=== PATIENT | female | born 1985 | race Caucasian/White ===

== ENCOUNTER 2024-03-15 01:18 | Day surgery (SDC) | payer OTHER, SELFPAY ==
[2024-03-14 18:25] VITALS: BP 113/81
[2024-03-14 18:43] LABS: % Basophils 0.4 % (0-2); % Eosinophils 0.3 % (0-6); % Immature Granulocytes 0.3 % (0-0.5); % Lymphocytes 12.4 % (20.5-51.1); % Monocytes 4.9 % (1.7-9.3); % Neutrophils 81.7 % (42.2-75.2); Absolute Basophils 0.1 10^3/uL (0-0.2); Absolute Eosinophils 0.1 10^3/uL (0-0.7); Absolute Immature Granulocytes 0.1 10^3/uL (0-0.05); Absolute Lymphocytes 2.1 10^3/uL (1.2-3.4); Absolute Monocytes 0.8 10^3/uL (0.1-0.6); Absolute Neutrophils 13.7 10^3/uL (1.4-6.5); Hematocrit 39.8 % (37.0-47.0); Hemoglobin 14.3 g/dL (12.0-16.0); Mean Corp Hgb Conc. 35.9 g/dL (33.0-37.0); Mean Corpuscular Hgb 28.9 pg (27.0-31.0); Mean Corpuscular Volume 80.4 fL (81.0-99.0); Mean Platelet Volume 9.4 fL (7.4-10.4); Nucleated Red Blood Cells % 0 %; Platelet Count 327 10^3/uL (130-400); Red Blood Cell Count 4.95 10^6/uL (4.20-5.40); Red Cell Dist. Width 11.8 % (11.5-14.5); White Blood Cell Count 16.8 10^3/uL (4.8-10.8)
[2024-03-14 18:57] LABS: HCG, Serum Qualitative Screen Negative
[2024-03-14 19:00] LABS: ALT (SGPT) 17 U/L (0-35); AST (SGOT) 25 U/L (14-36); Albumin 4.6 g/dl (3.5-5.0); Alkaline Phosphatase 57 U/L (38-126); Blood Urea Nitrogen 10 mg/dl (7-17); Calcium 9.8 mg/dl (8.4-10.2); Carbon Dioxide 24 mmol/L (22-30); Chloride 105 mmol/L (98-107); Glucose 85 mg/dl (70-99); Lipase 114 U/L (23-300); Sodium 138 mmol/L (135-145); Total Bilirubin 1.1 mg/dl (0.2-1.3); eGFR > 60.00
[2024-03-14] MEDS: TORADOL 15 MG IV (21:40)
[2024-03-14] MEDS: NSS 1000 IV (21:40)
[2024-03-14] MEDS: ZOFRAN 4 MG IV (21:42)
[2024-03-14 21:58] LABS: Urine Albumin Negative (Neg - Trace); Urine Bilirubin Negative (Negative); Urine Character Clear (Clear); Urine Color Yellow; Urine Glucose Negative (Negative); Urine Ketone 3+ (Negative); Urine Leukocyte Negative (Negative); Urine Nitrite Negative (Negative); Urine Occult Blood Negative (Negative); Urine Urobilinogen Negative (Neg - 1+)
--- NOTE | 2024-03-14 22:00 | ED.GENMED ---
History of Present Illness
General
Chief Complaint: Abdominal Pain
Source: patient
Exam Limitations: none
Time Seen by Provider: 03/14/24 20:27
Travel History
Have you had any contact with someone who has COVID-19?: No
Do you have any symptoms of coronavirus? Fever > 100 degrees, chills, cough, shortness of breath, sore throat, loss of taste or smell, muscle aches, or headache?: No
History of Present Illness
History of Present Illness:
39-year-old female presents complaining of significant right-sided abdominal pain that is constant sharp stabbing in nature occasionally radiates to the back. There is associated nausea with vomiting. This started fairly suddenly today. There was
some associated upper abdominal discomfort at the onset of the symptoms. Last menstrual cycle was finished last week. No fevers. She is healthy otherwise. No other complaints at this time
Past History
Past History
ED Past Medical History: None, Other (Recovering alcoholic), Other (Anxiety) and Other (Sleep disturbance)
ED Past Surgical History: None
Social History
Tobacco: Smoker
Alcohol: Other (Recovering alcoholic- clean for 31 days)
Personal: Single
Living: with family
Family History
Family History: Other (Cancer of the colon )
Phy Exam
Physical Exam
Physical Exam:
General: Well-appearing female no acute tomy distress
HEENT: Normocephalic atraumatic
Heart: Regular rate and rhythm no murmurs
Lungs: Clear no wheeze
Abdomen is soft but tender to the right lower quadrant mild guarding no rebound normal bowel sounds nondistended
Extremities: No cyanosis or edema
Course
Orders/Labs/Results
Orders:
Orders
03/14/24 18:30
Test Result ONCE
03/14/24 18:37
Complete Blood Count/With Diff Urgent
Comprehensive Metabolic Panel Urgent
HCG, Serum Qualitative Screen Urgent
Lipase Urgent
03/14/24 20:47
CT Abd/pelvis W Iv Cont Urgent
Comment:
Reason For Exam: rlq pain
0.9% Sodium Chloride 1000 ml [Nss] 1,000 ml IV BOLUS
Ketorolac [Toradol] 15 mg IV NOW STA
Ondansetron HCl [Zofran] 4 mg PO NOW STA
03/14/24 21:27
Ondansetron Injectable [Zofran] 4 mg .ROUTE .STK-MED ONE
03/14/24 21:41
Ondansetron Injectable [Zofran] 4 mg IV NOW STA
03/14/24 21:44
Urinalysis Reflex To Culture Urgent
Date Specimen was Collected: 03/14/24
Time Specimen was Collected: 18:29
03/14/24 23:00
Piperacillin/Tazo 3.375 Gram [Zosyn] 3.375 gram in 50 ml IV NOW
Abnormal Lab Results
03/14/24 03/14/24
18:37 21:44
WBC 16.8 H 10^3/uL
(4.8-10.8)
MCV 80.4 L fL
(81.0-99.0)
Abs Immat Gran (auto) 0.1 H 10^3/uL
(0-0.05)
Absolute Neuts (auto) 13.7 H 10^3/uL
(1.4-6.5)
Absolute Monos (auto) 0.8 H 10^3/uL
(0.1-0.6)
Neutrophils % 81.7 H %
(42.2-75.2)
Lymphocytes % 12.4 L %
(20.5-51.1)
Urine Ketones 3+ A
(Negative)
03/14/24 18:37
03/14/24 18:37
Vital Signs
Initial and Last Documented VS:
Initial Vital Signs
Temp Pulse Resp BP Pulse Ox
98.9 F 83 18 113/81 100
03/14/24 18:25 03/14/24 18:25 03/14/24 18:25 03/14/24 18:25 03/14/24 18:25
Last Documented Vital Signs
Temp Pulse Resp BP Pulse Ox
98.9 F 83 18 113/81 100
03/14/24 18:25 03/14/24 18:25 03/14/24 18:25 03/14/24 18:25 03/14/24 18:25
MDM/Problems Addressed
Differential Diagnosis Includes:
Right lower abdominal pain. Consider appendicitis versus renal colic versus ovarian cyst versus torsion. test is negative. Will check labs otherwise. Given the right lower quadrant pain order CT of the abdomen
*Critical Care Note
Total Time (30-74mins, 75-104mins- exclusive of procedures): Not Applicable
Update Note
Update Note:
I personally reviewed the CAT scan and discussed findings with radiology. There is acute appendicitis without evidence of rupture or free air. Discussed findings with general surgeon on-call who accept the patient under his service. Ortiz
provider made aware
ED Attending Note
-
Portions of this chart may have been created with voice recognition software.� Occasional wrong word or��sound alike� substitutions may have occurred due to the inherent limitations of voice recognition software.
Discharge Plan
Departure
Patient Disposition: Admit
Date of Disposition: 03/14/24
Time of Disposition: 23:03
Admit to: Med/Surg
Presentation/result/management discussed w/ accepting MD/DO: Vega
Discharge Problem:
Acute appendicitis
Prescriptions:
No Action
vit-iron fum-folic ac 1 EACH tablet
1 ea PO DAILY
hydrocortisone 1 APPLIC cream
[address] Q6HPRN PRN (Reason: hemorrhoids) Qty: 0 0RF
acetaminophen 325 MG tablet
650 mg PO Q4HPRN PRN (Reason: mild pain) 0RF
sennosides-docusate sodium 1 TABLET tablet
1 tab PO DAILYPRN PRN (Reason: constipation) Qty: 30 0RF
ibuprofen 600 MG tablet
600 mg PO Q4HPRN PRN (Reason: cramps) Qty: 30 0RF
oxycodone-acetaminophen 5 MG/325 MG tablet
1 tab PO Q4HPRN PRN (Reason: moderate pain) Qty: 10 0RF
ferrous sulfate [iron] 325 MG tablet
325 mg PO BID Qty: 60 0RF
Referrals:
Jolly Salas DO [Family Provider] -
Interventions
Interventions:
*Risk Screen - Suicide Last Done: 03/14/24 18:25
*General Assessment Last Done: 03/14/24 18:25
*Neglect/Abuse Screening Last Done: 03/14/24 18:25
JS-Imxvcz-Rgtbnqltsm Assessment Last Done: 03/14/24 21:37
Discharge Date and Time
Print Language: [place]
[2024-03-14 23:05] VITALS: BP 118/78
[2024-03-14] MEDS: ZOSYN 50 IV (23:11)
--- NOTE | 2024-03-14 23:24 | HPS.HSE ---
Addendum entered and electronically signed by Brenton Ferrari MD 03/15/24 08:57:
I saw and examined the patient independently.
The Watch Repair Technician's note was reviewed and I agree with the note, assessment and plan except where noted below.
Comment: This is a 39-year-old female with a history of who presents with a 1 day history of generalized and more focal right lower quadrant abdominal pain. Associated nausea and vomiting. Some chills and subjective fever at home. Vital
signs stable, exam with focal tenderness in the right lower quadrant. CT scan with dilated inflamed appendix all concerning for acute appendicitis
Will plan for a laparoscopic appendectomy in the OR today.
Patient is on semaglutide so we will need likely RSI, will discuss with anesthesia.
N.p.o., IV fluids, IV antibiotics.
Risks/Benefits/Alternatives, expected postoperative course and possible complications (bleeding, infection, injury to surrounding structures, acute/chronic pain) discussed at length. Patient wishes to proceed with surgery. All questions answered.
Consent obtained.
I spent roughly 60 minutes in total for the care of this patient today including direct patient care and counseling, reviewing labs, imaging, coordination of care, as well as documentation.
Original Note:
Family Physician
-
Family Physician: Jolly Salas
Chief Complaint
-
Abdominal pain
History of Present Illness
a 39 years old female present in ER with a complain of abdominal pain that started last night. Pain started as generalized pain then localized at the RLQ. Described pain as sharp and constant. Patient did not take pain meds at home. Pain increases
with movement and walking. Pain is radiating to the back and associated with diarrhea x1, nausea, vomiting x3. Denied SOB, chest pain, urinary symptoms or any other symptoms.
Medical History
Past Medical History
Past Medical History: Reports Psychiatric (Anxiety )
Past Surgical History: Reports
Social History
Tobacco: Vaping
Alcohol: Former
Drug: None
Personal: Single
Living: With Family
Employment: Employed
Family History
Family History: Other (Cancer of the colon )
Allergies / Home Medications
Allergies reflects when Allergies were last updated in tribr.
Home Medications with original date entered in tribr
Allergy/Medication List:
Patient Allergies
Allergy/AdvReac Type Severity Reaction Status Date / Time
cefprozil [From Cefzil] Allergy Rash Verified 03/14/24 18:28
Home Medications Table - record
�Medication �Instructions �Recorded �Confirmed
cetirizine 10 mg tablet (Zyrtec) 10 mg PO DAILY 03/14/24 03/15/24
doxycycline hyclate 50 mg tablet 50 mg PO DAILY 03/14/24 03/15/24
semaglutide (weight loss) 2.4 2.4 mg SC QWEEK 03/14/24 03/15/24
mg/0.75 mL subcutaneous pen
injector
Review of Systems
-
A 12 point ROS was completed and negative except as noted: Yes
Constitutional: Reports No Symptoms
EENT: Reports No Symptoms
Respiratory: Reports No Symptoms
Cardiac: Reports No Symptoms
Abdomen/GI: Reports Abdominal Pain, Nausea, Vomiting and Diarrhea
: Reports No Symptoms
Musculoskeletal: Reports No Symptoms
Skin: Reports No Symptoms
Neurological: Reports No Symptoms
Hematologic/Lymphatic: Reports No Symptoms
Psych: Reports No Symptoms
Physical Exam
Vital Signs
Vital Signs
Temp Pulse Resp BP Pulse Ox
99.8 F 80 16 118/78 100
03/14/24 23:05 03/14/24 23:05 03/14/24 23:05 03/14/24 23:05 03/14/24 23:05
Physical Exam
General: No Apparent Distress
Respiratory: Clear
Cardiac: Regular Rhythm
GI: Soft and Tender (RLQ + McBurney`s point and obturator sign )
Musculoskeletal: No Edema
Neuro: Awake and AO x 3
Psych: Calm
Laboratory Results
-
03/14/24 18:37
03/14/24 18:37
Laboratory Results
Total Bilirubin 1.1 mg/dl (0.2-1.3) 03/14/24 18:37
AST 25 U/L (14-36) 03/14/24 18:37
ALT 17 U/L (0-35) 03/14/24 18:37
Alkaline Phosphatase 57 U/L (38-126) 03/14/24 18:37
Lipase 114 U/L (23-300) 03/14/24 18:37
Data Reviewed
-
CT Scan: Discussed with Patient
Impression/Plan
-
Abdomen/PLVS CT scan shows
The appendix is abnormal, enlarged, and measures 10 mm in greatest dimension. There is inflammatory stranding about the appendix. No free air. Small amount of free fluid in the pelvis. Pelvic organs unremarkable. Urinary bladder is collapsed. Not
well distended.
WBC 16.8
IMPRESSION:
Acute appendicitis
PLAN:
Admit/ observation /med-surg (Dr. Ferrari/ Surgical services )
NPO
IVF
Abx Zosyn
Antiemetics
Analgesics as needed.
DVT prophylaxis Lovenox sq
Code status Full code
[2024-03-15] VITALS (11 sets, daily range): BP systolic 89–137; BP diastolic 54–77
[2024-03-15] MEDS: NSS 1000 IV (01:45)
--- NOTE | 2024-03-15 02:00 | PTCARENOTE ---
Received pt from ED via wheelchair. Admitted for Acute Appendicitis. Medsurg orders> T99.1, HR73, RR22, BP116/75, pox 100% room air. c/o 7/10 sharp pain in RLQ that radiates around to lower back- Morphine administered. PMH and medications reviewed
by this RN and pt. Plan of care discussed. Pt scheduled for OR today w/ Dr. Frerari. Pt oriented to room. Call plasencia within reach.
[2024-03-15] MEDS: MORPHINE SULFATE 2 MG IV ×2 (02:13→13:53)
--- NOTE | 2024-03-15 02:30 | PTCARENOTE ---
Received pt from ED via wheelchair. Pt admitted for Acute Appendicitis. Medsurg orders> T99.1, HR73, RR22, BP116/75, pox 100% room air.
Pt c/o 05/01 sharp pain in RLQ that radiates to lower back- Morphine administered.
PMH and medications reviewed by this RN and pt. Plan of care discussed. Pt scheduled for OR today w/ Dr. Ferrari.
Pt oriented to room. Call plasencia within reach.
[2024-03-15] MEDS: ZOSYN 50 IV (05:26)
--- NOTE | 2024-03-15 08:57 | W.SUR.PREOP ---
Pre-Operative Surgical Note
-
I have examined this patient prior to the performance of the scheduled procedure.
The patient's condition is unchanged from the time of the current History and
Physical and the patient is able to undergo the scheduled procedure.
--- NOTE | 2024-03-15 11:00 | W.IMMPOSTOP ---
Surgical Immed Post Op Note
-
Primary Surgeon: Brenton Ferrari MD
Assisting Surgeon: None
Pre-op Diagnosis: Acute appendicitis
Post-op Diagnosis: Same
Procedure Performed: Laparoscopic appendectomy
Anesthesia Type: General
Specimen / Cultures: Appendix
Estimated Blood Loss: 3 cc
Complications: None
Operative Findings: Acute inflamed, suppurative nonperforated appendicitis. Base ligated with 2-0 PDS Endoloops and divided by LigaSure. Three 5 mm ports used.
POST OP PLAN:
Imaging: None
Labs: None
Diet: Advance to Regular as tolerated
Analgesia: Tylenol 650mg q6 Gustavo, Rocio 5mg q6 PRN, Dilaudid 0.5mg q2h PRN
Neuro/vascular checks: q4h
AC/AP: Hold Therapeutic AC, Ok for DVT PPx
Activity: Ad Apple
Wound/Incisions/Drains: Routine
Abx: Continue Zosyn while admitted, will do 4 days of antibiotics on discharge.
Dispo: RNF, anticipate discharge home later today. updated.
--- NOTE | 2024-03-15 11:01 | OR.RPT ---
Operative Report
Operative Report
Patient Name: Nellie Smith
: 1985
Date of Operation: 03/15/2024
Preoperative Diagnosis: Acute Appendicitis
Postoperative Diagnosis: Same
Procedure(s):
Laparoscopic Appendectomy
Surgeon(s):
Dr. Ferrari
Amf Mechanic(s):
None
Anesthesia: General
Estimated Blood Loss: 3 cc
Urine Output: None
Drains/Lines/Implants: None
Specimens:
1. Appendix
HPI/Surgical Indications:
This is a 39-year-old female who presents with a 1 day history of abdominal pain. Exam, labs and imaging are consistent with acute appendicitis. Risks/Benefits/Alternatives were discussed at length, and the patient agreed to proceed with surgery.
Findings:
Acute suppurative, non-perforated appendicitis
Procedure Description:
The patient was placed in the supine position, with the left arm tucked, and general anesthesia was induced. The abdomen was prepared and draped in a sterile fashion so as to expose the entire abdomen. A surgical time out was taken. Abdominal access
was obtained with a 5mm infra-umbilical Tahira Entry. After confirming no injury on entrance, two additional 5mm ports were placed in the suprapubic area just off midline (at her prior scar) and in the left lower quadrant. The patient was
placed in Trendelenberg with the right slightly up . The appendix was identified and a window was created in the mesoappendix. The appendix was suppurative and inflamed but not perforated. Using a LigaSure energy device, the meso appendix was
divided. The base of the appendix appeared uninvolved and was ligated/divided using two 0-PDS Endoloops and the energy device. The appendix was placed in a specimen retrieval bag. Hemostasis was confirmed and the ports were removed under
visualization. The specimen was passed off the field. The umbilical port was closed with a [id number] 0-PDS and the skin for all three ports was closed with interrupted monocryls and covered with dermabond. The patient was awoken from
anesthesia in good condition and transported to the recovery area.
I was the attending physician and performed the procedure with no assistance. I was present for all portions of the case
Brenton Ferrari MD
[2024-03-15] MEDS: ZOSYN IV (11:21)
--- NOTE | 2024-03-15 12:12 | PTCARENOTE ---
Patient returned from PACU in bed; IVF infusing; Surgical site assessed with DISTANCE LEARNING COORDINATOR, 3 lap sites open to air with glue; Denies nausea at this time; Abdominal pain mild, ice to abdomen; Patient awake and alert; Bed in lowest position, wheels locked;
Call plasencia within reach; Assessment ongoing
--- NOTE | 2024-03-15 12:51 | CM ---
Cm met with patient, and their 2 young children in room. Patient is PSR status after appendectomy today. Plan home no needs.
PCP Sees LEANA Muhammad at [facility]
Pharmacy; [facility]
PLAN: home no needs.
== END 2024-03-15 16:40 | disposition home or self-care (01) ==
LOC: SDS 01:18
PROVIDERS: Emergency Medicine; ATTENDING PHYSICIAN Surgery; EMERGENCY PHYSICIAN Student in an Organized Health Care Education/Training Program; FAMILY PHYSICIAN Family Medicine
DX: K35.80 Unspecified acute appendicitis (principal)
CPT/HCPCS: 44970; 88304; 74177; 80053; 81003; 83690; 84703; 85025; 96361; 96365; 96375; 99285; G0378; Q9967

== ENCOUNTER → 2024-12-31 08:18 | Outpatient (REF) | payer OTHER, SELFPAY | LOC: HWRAD 08:18 | PROVIDERS: ATTENDING PHYSICIAN Registered Nurse; FAMILY PHYSICIAN Nurse Practitioner Adult Health | DX: R10.2 Pelvic and perineal pain (principal) | CPT/HCPCS: 76830; 76856 ==

== ENCOUNTER → 2025-01-08 09:32 | Outpatient (REF) | payer OTHER, SELFPAY | LOC: HWWDC 09:32 | PROVIDERS: ATTENDING PHYSICIAN Registered Nurse; FAMILY PHYSICIAN Nurse Practitioner Adult Health | DX: Z12.31 Encounter for screening mammogram for malignant neoplasm of breast (principal) | CPT/HCPCS: 77063; 77067 ==

== ENCOUNTER → 2025-04-21 12:47 | Outpatient (REF) | payer OTHER, SELFPAY | LOC: HWRAD 12:47 | PROVIDERS: ATTENDING PHYSICIAN Registered Nurse; FAMILY PHYSICIAN Nurse Practitioner Adult Health | DX: N83.201 Unspecified ovarian cyst, right side (principal) | CPT/HCPCS: 76830; 76856 ==